=== PATIENT | female | born 1955 | race African-American/Black ===

== ENCOUNTER 2019-06-02 21:34 | Observation (INO) | payer MEDICARE, MEDICAID ==
[2019-06-02 22:47] LABS: #Basophils 0.1 thou/uL (0.0-0.2); #Eosinphils 0.1 thou/uL (0.0-0.7); #Lymphocytes 3.5 thou/uL (1.20-3.40); #Monocytes 0.4 thou/uL (0.11-0.59); #Neutrophils 9.6 thou/uL (1.40-6.50); %Basophils 0.6 % (0.0-1.0); %Eosinophils 0.4 % (0.0-10.0); %Lymphocytes 25.4 % (21.0-51.0); %Monocytes 2.6 % (0.0-10.0); Hemoglobin 12.6 g/dL (12.0-16.0); Mean Corpuscular HGB CONC 31.4 g/dL (32.0-36.0); Mean Corpuscular Hemoglobin 25.5 pg (27.0-31.0); Mean Corpuscular Volume 81.4 fL (78.0-98.0); Platelet Count 202 thou/uL (130-400); Red Blood Cell (RBC) Count 4.93 mill/uL (4.20-5.40); White Blood Cell (WBC) Count 13.6 thou/uL (4.8-10.8)
[2019-06-02 23:07] LABS: Bilirubin Negative (Negative); Blood, Urine Negative (Negative); Clarity Clear (Clear); Glucose, Urine (Dipstick) Normal (Negative); Leukocyte 500 Leu/uL (Negative); Mucous/LPF Rare LPF (<2+); Nitrite Negative (Negative); Protein, Urine (Dipstick) 50 mg/dL (Neg-Trace); Squamous Epithelial 0-3 HPF (0-3); Urobilinogen 6 mg/dL (Less than 2); WBC/HPF 21-50 HPF (0-3)
[2019-06-02 23:08] LABS: Bacteria/HPF 1+ HPF (None Seen)
[2019-06-02 23:10] LABS: Anion Gap 17 mmol/L (10-20); BUN (Urea Nitrogen) 20 mg/dL (9.8-20.1); Calc. Creatinine Clearance 0 mL/min (70-130); Calcium 8.2 mg/dL (7.8-10.44); Carbon Dioxide 36 mmol/L (23-31); Chloride 87 mmol/L (98-107); Estimated GFR-MDRD 83; Glucose 133 mg/dL (80-115); Sodium 138 mmol/L (136-145)
[2019-06-02] MEDS ORDERED: cefTRIAXone\\ROCEPHIN 1 GM VIAL ONE (23:52)
[2019-06-02] MEDS ORDERED: Potassium Chloride 20 MEQ TAB ONE (23:52)
[2019-06-02] MEDS ORDERED: Magnesium 2 GM/50 ML BAG (IN WATER) ONE (23:52)
[2019-06-03 00:03] LABS: Magnesium 1.9 mg/dL (1.6-2.6)
[2019-06-03 00:08] LABS: Troponin I 0.049 ng/mL (< 0.028)
[2019-06-03] MEDS ORDERED: Potassium Chloride 40 MEQ in Sodium Chloride 0.9% 250 ML 250 ML IVPB SCH (00:15)
[2019-06-03] MEDS ORDERED: Aspirin Chewable 81 MG TAB ONE (00:36)
[2019-06-03] MEDS: NS 0.9% w/ 40 MEQ KCL 1,000 ML IV SCH ×3 (04:57→18:50)
[2019-06-03] MEDS ORDERED: Calcium Carbonate 500 MG ChewTAB PO PRN (06:42)
[2019-06-03] MEDS ORDERED: Acetaminophen 325 MG TAB PO PRN (06:42)
[2019-06-03] MEDS ORDERED: Senokot S 8.6-50 MG TAB PO PRN (06:42)
[2019-06-03] MEDS ORDERED: Ondansetron ODT 4 MG TAB PO PRN (06:42)
[2019-06-03] MEDS ORDERED: Bisacodyl 10 MG SUPP PR PRN (06:42)
[2019-06-03] MEDS ORDERED: cloNIDine 0.1 MG TAB PO PRN (06:44)
[2019-06-03] MEDS ORDERED: Sodium Chloride 0.65% Nasal 44 ML BOT EA NARE PRN (07:13)
[2019-06-03] MEDS ORDERED: HYDROcodone/Acetaminophen 5/325 mg Tablet PO PRN (07:13)
[2019-06-03] MEDS ORDERED: hydrALAZINE 20 MG/ML VIAL SLOW IVP PRN (07:13)
[2019-06-03] MEDS ORDERED: Ondansetron PF 4 MG/2 ML Vial IVP PRN (07:13)
[2019-06-03] MEDS ORDERED: Diabetic Tussin 200 MG/10 ML UDCUP PO PRN (07:13)
[2019-06-03] MEDS ORDERED: Loperamide HCl 2 MG CAP PO PRN (07:13)
[2019-06-03] MEDS ORDERED: Artificial Tears 18 DROP/0.9 ML EA EYE PRN (07:13)
[2019-06-03] MEDS ORDERED: Cepastat Lozenges 1 LOZ PO PRN (07:13)
[2019-06-03] MEDS ORDERED: Loratadine 10 MG TAB PO PRN (07:13)
[2019-06-03 07:37] LABS: Anion Gap 12 mmol/L (10-20); BUN (Urea Nitrogen) 18 mg/dL (9.8-20.1); Calc. Creatinine Clearance 77 mL/min (70-130); Calcium 7.5 mg/dL (7.8-10.44); Carbon Dioxide 35 mmol/L (23-31); Chloride 94 mmol/L (98-107); Estimated GFR-MDRD Greater than 90; Glucose 129 mg/dL (80-115); Sodium 138 mmol/L (136-145)
--- NOTE | 2019-06-03 07:42 | HP ---
PRIMARY CARE PHYSICIAN: [facility]. The patient follows [facility]. CHIEF CONCERN: Altered mentation. HISTORY OF PRESENT ILLNESS: The patient is a 63-year-old female with mental retardation, anxiety, depression, and psychosocial disorder, was brought in by her family with altered mentation. The patient was not acting right per family. Over the last 2 days, she has not been eating and drinking well. The patient was not participating in her routine activities. She has been staying in her room most of the time over the last 2 days. There was no fever or chills reported. No recent injury, seizure, or focal neurologic deficits reported. Please note that history was obtained from the ER record. No family at the bedside. In the emergency room, she was found to have potassium of 2.0 with urinary tract infection. She received ceftriaxone, IV fluids, potassium, aspirin, and magnesium in the emergency room. PAST MEDICAL HISTORY: 1. Mental retardation with developmental delay. The patient is followed by [facility]. 2. Anxiety and depression. 3. Tobacco dependence. 4. Psychosocial disorder. PAST SURGICAL HISTORY: Breast cysts removal in 1989. ALLERGIES: NO KNOWN DRUG ALLERGIES. CURRENT HOME MEDICATIONS: To be verified with the family. SOCIAL HISTORY: As discussed above. The patient smokes cigarettes on a daily basis. No alcohol or drug use. Follows [facility]. FAMILY HISTORY: Positive for anemia. REVIEW OF SYSTEMS: Cannot be obtained reliably from the patient due to mental retardation PHYSICAL EXAMINATION: VITAL SIGNS: Temperature 98.3, respirations of 18, pulse rate of 89, blood pressure 117/80, O2 saturation 97% on room air. GENERAL: 63-year-old female, in no apparent distress. Appears comfortable. HEENT: Head is atraumatic and normocephalic. Sclerae anicteric. Dry mucous membranes. No oral lesion. NECK: Supple. No JVD. No carotid bruit. LUNGS: Clear to auscultation bilaterally. No wheezing, rales, or rhonchi. HEART: S1 and S2, present. Regular rate and rhythm. No rubs or gallops appreciated. ABDOMEN: Soft and nontender. Bowel sounds present. No rebound or guarding. EXTREMITIES: No edema or calf tenderness. NEUROLOGY: Grossly nonfocal. The patient is moving all 4 extremities on verbal commands. Power was 4 to 5/5 in all extremities. PSYCHIATRY: Alert and awake. LYMPH NODES: No palpable lymph nodes in the neck. PERIPHERAL VASCULAR: Radial pulses are palpable bilaterally. MUSCULOSKELETAL: No joint swelling or tenderness. LABORATORY FINDINGS: Potassium 2.0 with bicarbonate of 36, BUN 20, creatinine 0.84, magnesium 1.9. Troponin 0.049. WBC 13.6 with platelet count 202. Urinalysis showed 21 to 50 wbc's with 1+ bacteria. EKG, by my review, showed sinus rhythm with nonspecific ST-T wave changes. There were ST depressions in the lateral leads. IMPRESSION: 1. Toxic metabolic encephalopathy, multifactorial. 2. Urinary tract infection. 3. Hypokalemia with potassium of 2.0. 4. Dehydration with possible contraction alkalosis. 5. Elevated troponin secondary to demand ischemia/type 2 myocardial infarction from dehydration. 6. Abnormal EKG. 7. Leukocytosis, probably secondary to urinary tract infection. 8. Mental retardation. 9. Anxiety. 10. Depression, mild, stable. PLAN: 1. The patient is currently admitted as a 23-hour observation on the telemetry unit. We will replace potassium. We will start low-dose aspirin. Check TSH, folic acid, and vitamin B12. We will recheck labs in a.m. Follow up with [facility] as outpatient. Echocardiogram will be obtained due to abnormal EKG. 2. Plan was discussed with the patient. We will discuss the plan of care with the family. We will try to obtain accurate list of medications prescribed by [facility]. Job ID: [id number]
[2019-06-03 07:43] LABS: Potassium 2.5 mmol/L (3.5-5.1)
[2019-06-03 08:01] LABS: CKMB 5.2 ng/mL (0-6.6)
[2019-06-03 08:10] LABS: Folate (Folic Acid) Less than 1.60 ng/mL (7.0-31.4); Vitamin B12 266 pg/mL (211-911)
[2019-06-03] MEDS ORDERED: Potassium Phosphate 15 MMOL in Sodium Chloride 0.9% 250 ML 250 ML IVPB SCH (09:30)
[2019-06-03] MEDS: Famotidine 20 MG TAB PO SCH ×2 (09:36→20:31)
[2019-06-03] MEDS: Aspirin 81 mg Enteric Coated Tablet PO SCH (09:36)
[2019-06-03] MEDS: Folic Acid 1 MG TAB PO SCH (09:36)
[2019-06-03] MEDS: Multivit, Therapeutic 1 TAB PO SCH (09:36)
[2019-06-03] MEDS: Thiamine 100 MG TAB PO SCH (09:36)
[2019-06-03] MEDS: Cyanocobalamin (Vitamin B-12) 1,000 MCG TAB PO SCH (09:36)
--- NOTE | 2019-06-03 14:49 | PDOC.PN ---
- Subjective Encounter Start Date: 06/03/19 Encounter Start Time: 10:00 -: old records requested/rev Patient seen and examined. No new complaints. No overnight events - Objective Resuscitation Status - Order Detail: 06/03/19 06:42 Resuscitation Status Routine Resuscitation Status: FULL: Full Resuscitation MAR Reviewed: Yes Vital Signs & Weight: Vital Signs (12 hours) Temp Pulse Resp BP Pulse Ox 06/03/19 12:58 98.5 F 94 16 102/66 98 06/03/19 07:36 98.6 F 96 14 98/63 97 Weight Weight 138 lb 6.4 oz I&O: 06/02/19 06/03/19 06/04/19 06:59 06:59 06:59 Intake Total 318 Output Total 150 Balance 168 Result Diagrams: 06/02/19 22:36 06/03/19 07:07 EKG Reviewed by me: Yes Phys Exam - Physical Examination Constitutional: NAD HEENT: moist MMs, sclera anicteric Neck: no JVD, supple Respiratory: no wheezing, no rales, no rhonchi Cardiovascular: RRR, no significant murmur, no rub Gastrointestinal: soft, non-tender, no distention, positive bowel sounds Musculoskeletal: no edema, pulses present Neurological: non-focal, normal sensation Lymphatic: no nodes Psychiatric: normal affect Skin: no rash, normal turgor Dx/Plan (1) Dehydration Code(s): E86.0 - DEHYDRATION Status: Acute (2) Demand ischemia Code(s): I24.8 - OTHER FORMS OF ACUTE ISCHEMIC HEART DISEASE Status: Acute (3) Folate deficiency Code(s): E53.8 - DEFICIENCY OF OTHER SPECIFIED B GROUP VITAMINS Status: Acute (4) Hypokalemia Code(s): E87.6 - HYPOKALEMIA Status: Acute (5) Hypophosphatemia Code(s): E83.39 - OTHER DISORDERS OF PHOSPHORUS METABOLISM Status: Acute (6) UTI (urinary tract infection) Status: Acute (7) 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 Review of Systems - Review of Systems ENT: negative: Ear Pain, Ear Discharge, Nose Pain, Nose Discharge, Nose Congestion, Mouth Pain, Mouth Swelling, Throat Pain, Throat Swelling, Other Respiratory: negative: Cough, Dry, Shortness of Breath, Hemoptysis, SOB with Excertion, Pleuritic Pain, Sputum, Wheezing Cardiovascular: negative: chest pain, palpitations, orthopnea, paroxysmal nocturnal dyspnea, edema, light headedness, other Gastrointestinal: negative: Nausea, Vomiting, Abdominal Pain, Diarrhea, Constipation, Melena, Hematochezia, Other Genitourinary: negative: Dysuria, Frequency, Incontinence, Hematuria, Retention , Other Musculoskeletal: negative: Neck Pain, Shoulder Pain, Arm Pain, Back Pain, Hand Pain, Leg Pain, Foot Pain, Other - Medications/Allergies Allergies/Adverse Reactions: Allergies Allergy/AdvReac Type Severity Reaction Status Date / Time No Known Drug Allergies Allergy Verified 06/03/19 02:43 Medications: Current Medications Acetaminophen (Tylenol) 650 mg PO Q4H PRN PRN Reason: Headache/Fever/Mild Pain (1-3) Hydrocodone Bitart/Acetaminophen ([place] 5/325) 1 tab PO Q4H PRN PRN Reason: Moderate Pain (4-6) Artificial Tears (Tears Naturale) 2 drop EA EYE PRN PRN PRN Reason: Dry Eyes Aspirin (Ecotrin) 81 mg PO DAILY [facility] Last Admin: 06/03/19 09:36 Dose: 81 mg Bisacodyl (Dulcolax) 10 mg [place] DAILYPRN PRN PRN Reason: Constipation Calcium Carbonate (Tums) 1,000 mg PO Q4H PRN PRN Reason: Heartburn or Indigestion Clonidine (Catapres) 0.1 mg PO Q4H PRN PRN Reason: SBP Greater Than 180 Cyanocobalamin (Vitamin B-12) 1,000 mcg PO DAILY [facility] Last Admin: 06/03/19 09:36 Dose: 1,000 mcg Enoxaparin Sodium (Lovenox) 40 mg SC 2100 [facility] Famotidine (Pepcid) 20 mg PO BID [facility] Last Admin: 06/03/19 09:36 Dose: 20 mg Folic Acid (Folvite) 1 mg PO DAILY [facility] Last Admin: 06/03/19 09:36 Dose: 1 mg Guaifenesin (Robitussin Sf) 200 mg PO Q4H PRN PRN Reason: Cough Hydralazine HCl (Apresoline) 10 mg SLOW IVP Q4H PRN PRN Reason: SBP > 180 and HR < 70 Potassium Chloride/Sodium Chloride (Ns 0.9% W/ 40 Meq Kcl) 1,000 mls @ 125 mls/ hr IV .Q8H [facility] Last Admin: 06/03/19 12:19 Dose: Not Given Potassium Phosphate 15 mmol/ (Sodium Chloride) 255 mls @ 62.5 mls/hr IVPB ONE [facility] Stop: 06/03/19 15:00 Loperamide HCl (Imodium) 2 mg PO PRN PRN PRN Reason: Diarrhea/Loose Stools Loratadine (Claritin) 10 mg PO DAILYPRN PRN PRN Reason: Sinus Symptoms Multivitamins (Theragran) 1 tab PO DAILY [facility] Last Admin: 06/03/19 09:36 Dose: 1 tab Ondansetron HCl (Zofran Odt) 4 mg PO Q6H PRN PRN Reason: Nausea/Vomiting Ondansetron HCl (Zofran) 4 mg IVP Q6H PRN PRN Reason: Nausea/Vomiting Senna/Docusate Sodium (Senokot S) 2 tab PO BID PRN PRN Reason: Constipation Sodium Chloride (Flush - Normal Saline) 10 ml IVF Q12HR [facility] Last Admin: 06/03/19 09:37 Dose: Not Given Sodium Chloride (Flush - Normal Saline) 10 ml IVF PRN PRN PRN Reason: Saline Flush Sodium Chloride ([place] Nasal [place] 0.65%) 0 ml EA NARE QIDPRN PRN PRN Reason: Nasal Congestion Thiamine HCl (Thiamine) 100 mg PO DAILY [facility] Last Admin: 06/03/19 09:36 Dose: 100 mg Throat Lozenges (Cepastat Lozenges) 1 michelle PO Q2H PRN PRN Reason: Sore Throat
[2019-06-03] MEDS ORDERED: Ciprofloxacin 500 MG TAB PO SCH (15:30)
[2019-06-03] MEDS: Ciprofloxacin 500 MG TAB PO SCH (20:30)
[2019-06-03] MEDS ORDERED: Enoxaparin Sodium 40 MG/0.4 ML SYRINGE SC SCH (21:00)
[2019-06-04] MEDS: NS 0.9% w/ 40 MEQ KCL 1,000 ML IV SCH (02:53)
[2019-06-04 05:50] LABS: Anion Gap 10 mmol/L (10-20); BUN (Urea Nitrogen) 10 mg/dL (9.8-20.1); Calc. Creatinine Clearance 98 mL/min (70-130); Calcium 7.3 mg/dL (7.8-10.44); Carbon Dioxide 32 mmol/L (23-31); Chloride 100 mmol/L (98-107); Estimated GFR-MDRD Greater than 90; Glucose 113 mg/dL (80-115); Sodium 139 mmol/L (136-145)
[2019-06-04 05:51] LABS: ALT (SGPT) 14 U/L (8-55); AST (SGOT) 15 U/L (5-34); Albumin 2.8 g/dL (3.4-4.8); Alkaline Phosphatase 50 U/L (40-150); Bilirubin, Direct 0.4 mg/dL (0.1-0.3); Bilirubin, Total 0.7 mg/dL (0.2-1.2); Cholesterol 67 mg/dl (< 200 Desired); HDL Cholesterol 34 mg/dL (>60 Neg Risk); LDL Cholesterol, Calculated 24 mg/dL; Protein, Total 5.2 g/dL (6.0-8.3); Triglycerides 47 mg/dL (Less than 150)
[2019-06-04 05:52] LABS: Potassium 2.5 mmol/L (3.5-5.1)
[2019-06-04] MEDS: Ciprofloxacin 500 MG TAB PO SCH (06:22)
[2019-06-04] MEDS ORDERED: Potassium Chloride 40 MEQ in Sodium Chloride 0.9% 250 ML 250 ML IVPB SCH (06:30)
[2019-06-04] MEDS ORDERED: Potassium Phosphate 30 MMOL in Sodium Chloride 0.9% 500 ML IVPB SCH (07:15)
[2019-06-04] MEDS ORDERED: Potassium Chloride 20 MEQ TAB PO SCH ×2 (07:15→12:00)
[2019-06-04] MEDS: Aspirin 81 mg Enteric Coated Tablet PO SCH (07:41)
[2019-06-04] MEDS: Multivit, Therapeutic 1 TAB PO SCH (07:42)
[2019-06-04] MEDS: Famotidine 20 MG TAB PO SCH (07:42)
[2019-06-04] MEDS: Thiamine 100 MG TAB PO SCH (07:42)
[2019-06-04] MEDS: Cyanocobalamin (Vitamin B-12) 1,000 MCG TAB PO SCH (07:42)
[2019-06-04] MEDS: Folic Acid 1 MG TAB PO SCH (07:42)
--- NOTE | 2019-06-04 10:23 | DIS ---
DATE OF ADMISSION: 06/03/2019 DATE OF DISCHARGE: 06/04/2019 PRIMARY CARE PHYSICIAN: [facility] Call admission. DISCHARGE DISPOSITION: Home. PRIMARY DISCHARGE DIAGNOSES: 1. Hypokalemia. 2. Folate deficiency. 3. Dehydration. 4. Demand ischemia. 5. Hypophosphatemia. 6. Urinary tract infection. SECONDARY DISCHARGE DIAGNOSES: 1. Mild psychomotor retardation. 2. Tobacco abuse disorder. 3. Obesity with BMI 31. PRIMARY PROCEDURE/OPERATION: None. RADIOLOGICAL INVESTIGATION: Echocardiography showed EF 55% to 60%, diastolic dysfunction. SIGNIFICANT LABORATORY DATA: Hemoglobin 12.6, creatinine 0.59, albumin 2.8. Troponin negative. Folate 1.6, B12 of 266, TSH 0.57. DISCHARGE MEDICATIONS: 1. Ciprofloxacin 500 mg p.o. twice daily for 5 days. 2. Vitamin B12 1000 mcg p.o. daily. 3. Folic acid 1 mg p.o. daily. 4. Multivitamin one tablet p.o. daily. 5. Thiamine 100 mg p.o. daily. 6. Potassium chloride 20 mEq p.o. daily. CONTRAINDICATION: None. CODE STATUS: Full code. INPATIENT [employer]ATION OPERATOR: None. ALLERGIES: NO KNOWN DRUG ALLERGIES. DISCHARGE PLAN: Posthospital, the patient will follow up with primary care physician in one week. HOSPITAL COURSE: A 63-year-old female with above-mentioned medical problem, who was admitted by Dr. Osman. Please see his H and P for further details. The patient was dehydrated. She was feeling generalized weak. She has psychomotor retardation and not able to provide any good history, but she had poor p.o. intake. She was found with hypokalemia and folate deficiency. Her phosphorus level was also low. During this admission, we replaced potassium phosphate, potassium chloride as well as she was given IV fluid. Her urinalysis was suggestive of UTI and that was treated with oral Cipro while in hospital. This patient is doing overall well. She is stable hemodynamically. Plan of care discussed with the family member. Today, again, potassium is relatively low and that is why we are replacing potassium aggressively including potassium phosphate and potassium chloride IV. The patient will get potassium supplement at home as well with prescription and folic acid will be given. I have seen and examined the patient bedside today. Her examination is completely normal. Her vitals are stable. All new medication prescription sent to her pharmacy. This patient will be discharged home later on today because we are going to recheck her potassium in afternoon time and subsequently, she will be able to go home. Job ID: [id number]
--- NOTE | 2019-06-04 10:31 | PDOC.PN ---
- Subjective Encounter Start Date: 06/04/19 Encounter Start Time: 07:30 -: old records requested/rev Patient seen and examined. No new complaints. No overnight events - Objective Resuscitation Status - Order Detail: 06/03/19 06:42 Resuscitation Status Routine Resuscitation Status: FULL: Full Resuscitation MAR Reviewed: Yes Vital Signs & Weight: Vital Signs (12 hours) Temp Pulse Resp BP Pulse Ox 06/04/19 07:23 98.4 F 85 16 102/74 97 06/04/19 02:56 98.7 F 74 21 H 112/74 96 06/03/19 23:41 98.0 F 91 16 113/84 95 Weight Weight 146 lb I&O: 06/03/19 06/04/19 06/05/19 06:59 06:59 06:59 Intake Total 318 3280 Output Total 150 1500 Balance 168 1780 Result Diagrams: 06/02/19 22:36 06/04/19 05:16 Phys Exam - Physical Examination Constitutional: NAD HEENT: moist MMs, sclera anicteric Neck: no JVD, supple Respiratory: no wheezing, no rales, no rhonchi Cardiovascular: RRR, no significant murmur, no rub Gastrointestinal: soft, non-tender, no distention, positive bowel sounds Musculoskeletal: no edema, pulses present Neurological: non-focal, normal sensation Lymphatic: no nodes Psychiatric: normal affect, A&O x 3 Skin: no rash, normal turgor Dx/Plan (1) Dehydration Code(s): E86.0 - DEHYDRATION Status: Acute (2) Demand ischemia Code(s): I24.8 - OTHER FORMS OF ACUTE ISCHEMIC HEART DISEASE Status: Acute (3) Folate deficiency Code(s): E53.8 - DEFICIENCY OF OTHER SPECIFIED B GROUP VITAMINS Status: Acute (4) Hypokalemia Code(s): E87.6 - HYPOKALEMIA Status: Acute (5) Hypophosphatemia Code(s): E83.39 - OTHER DISORDERS OF PHOSPHORUS METABOLISM Status: Acute (6) UTI (urinary tract infection) Status: Acute (7) 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 Review of Systems - Review of Systems Respiratory: negative: Cough, Dry, Shortness of Breath, Hemoptysis, SOB with Excertion, Pleuritic Pain, Sputum, Wheezing Cardiovascular: negative: chest pain, palpitations, orthopnea, paroxysmal nocturnal dyspnea, edema, light headedness, other Gastrointestinal: negative: Nausea, Vomiting, Abdominal Pain, Diarrhea, Constipation, Melena, Hematochezia, Other Genitourinary: negative: Dysuria, Frequency, Incontinence, Hematuria, Retention , Other Musculoskeletal: negative: Neck Pain, Shoulder Pain, Arm Pain, Back Pain, Hand Pain, Leg Pain, Foot Pain, Other - Medications/Allergies Allergies/Adverse Reactions: Allergies Allergy/AdvReac Type Severity Reaction Status Date / Time No Known Drug Allergies Allergy Verified 06/03/19 02:43 Medications: Current Medications Acetaminophen (Tylenol) 650 mg PO Q4H PRN PRN Reason: Headache/Fever/Mild Pain (1-3) Hydrocodone Bitart/Acetaminophen ([place] 5/325) 1 tab PO Q4H PRN PRN Reason: Moderate Pain (4-6) Artificial Tears (Tears Naturale) 2 drop EA EYE PRN PRN PRN Reason: Dry Eyes Aspirin (Ecotrin) 81 mg PO DAILY [facility] Last Admin: 06/04/19 07:41 Dose: 81 mg Bisacodyl (Dulcolax) 10 mg [place] DAILYPRN PRN PRN Reason: Constipation Calcium Carbonate (Tums) 1,000 mg PO Q4H PRN PRN Reason: Heartburn or Indigestion Ciprofloxacin (Cipro) 500 mg PO 0600,2000 [facility] Last Admin: 06/04/19 06:22 Dose: 500 mg Clonidine (Catapres) 0.1 mg PO Q4H PRN PRN Reason: SBP Greater Than 180 Cyanocobalamin (Vitamin B-12) 1,000 mcg PO DAILY [facility] Last Admin: 06/04/19 07:42 Dose: 1,000 mcg Enoxaparin Sodium (Lovenox) 40 mg SC 2100 [facility] Last Admin: 06/03/19 20:30 Dose: 40 mg Famotidine (Pepcid) 20 mg PO BID [facility] Last Admin: 06/04/19 07:42 Dose: 20 mg Folic Acid (Folvite) 1 mg PO DAILY [facility] Last Admin: 06/04/19 07:42 Dose: 1 mg Guaifenesin (Robitussin Sf) 200 mg PO Q4H PRN PRN Reason: Cough Hydralazine HCl (Apresoline) 10 mg SLOW IVP Q4H PRN PRN Reason: SBP > 180 and HR < 70 Potassium Phosphate 30 mmol/ (Sodium Chloride) 510 mls @ 63.75 mls/hr IVPB NOW [facility] Stop: 06/04/19 15:14 Last Admin: 06/04/19 08:10 Dose: 510 mls Loperamide HCl (Imodium) 2 mg PO PRN PRN PRN Reason: Diarrhea/Loose Stools Loratadine (Claritin) 10 mg PO DAILYPRN PRN PRN Reason: Sinus Symptoms Multivitamins (Theragran) 1 tab PO DAILY [facility] Last Admin: 06/04/19 07:42 Dose: 1 tab Ondansetron HCl (Zofran Odt) 4 mg PO Q6H PRN PRN Reason: Nausea/Vomiting Ondansetron HCl (Zofran) 4 mg IVP Q6H PRN PRN Reason: Nausea/Vomiting Potassium Chloride (K-Dur) 40 meq PO 1200 [facility] Stop: 06/04/19 14:00 Senna/Docusate Sodium (Senokot S) 2 tab PO BID PRN PRN Reason: Constipation Sodium Chloride (Flush - Normal Saline) 10 ml IVF Q12HR [facility] Last Admin: 06/04/19 07:48 Dose: Not Given Sodium Chloride (Flush - Normal Saline) 10 ml IVF PRN PRN PRN Reason: Saline Flush Sodium Chloride ([place] Nasal [place] 0.65%) 0 ml EA NARE QIDPRN PRN PRN Reason: Nasal Congestion Thiamine HCl (Thiamine) 100 mg PO DAILY [facility] Last Admin: 06/04/19 07:42 Dose: 100 mg Throat Lozenges (Cepastat Lozenges) 1 michelle PO Q2H PRN PRN Reason: Sore Throat
[2019-06-04 11:38] VITALS: BP 116/76; TEMP 98.1
[2019-06-04 14:48] VITALS: BMI 31.6
[2019-06-04 14:58] LABS: Potassium 3.5 mmol/L (3.5-5.1)
--- NOTE | 2019-06-09 15:20 | EKG ---
Test Reason : Blood Pressure : / mmHG Vent. Rate : 085 BPM Atrial Rate : 085 BPM P-R Int : 146 ms QRS Dur : 072 ms QT Int : 448 ms P-R-T Axes : 026 034 232 degrees QTc Int : 533 ms Normal sinus rhythm Prolonged QT Abnormal ECG Confirmed by LAY PAYTON DO ([id number]), video tape editor GERMAINE AGUILA ([id number]) on 06/09/2019 3:20:18 PM Referred By: Confirmed By:LAY PAYTON DO
== END 2019-06-04 16:00 | disposition home or self-care (01) ==
LOC: ERS 21:34 → 2SW 06-03 01:18
PROVIDERS: ADMIT Internal Medicine; ATTEND Internal Medicine
DX: G92 Toxic encephalopathy (principal); E87.6 Hypokalemia; R62.50 Unspecified lack of expected normal physiological development in childhood; F41.8 Other specified anxiety disorders; F32.9 Major depressive disorder, single episode, unspecified; F79 Unspecified intellectual disabilities; N39.0 Urinary tract infection, site not specified; D64.9 Anemia, unspecified; D72.829 Elevated white blood cell count, unspecified; F17.210 Nicotine dependence, cigarettes, uncomplicated; Z79.82 Long term (current) use of aspirin; Z79.899 Other long term (current) drug therapy
CPT/HCPCS: 80048 ×3; 80061; 80076; 82550; 82553; 82607; 82746; 83735; 84100 ×2; 84132; 84443; 84484 ×3; 85025; 87086; 93005; 93306; 96365; 96366 ×2; 96367; 96368; 96372; 96375; 97139 ×2; 99285; G0378 ×2; 36415; 81003; 81015; J0696; J1650; J3475; J3480; J7050

== ENCOUNTER 2021-12-14 13:09 | Inpatient (IN) | payer MEDICARE, MEDICAID ==
[2021-12-14] MEDS ORDERED: OLANZapine 5 MG TAB ONE (14:33)
[2021-12-14] MEDS ORDERED: Metoclopramide HCl 10 MG TAB ONE (14:41)
[2021-12-14 14:52] LABS: #Basophils 0.1 thou/uL (0.0-0.2); #Eosinphils 0.2 thou/uL (0.0-0.7); #Lymphocytes 2.8 thou/uL (1.20-3.40); #Monocytes 0.5 thou/uL (0.11-0.59); #Neutrophils 3.8 thou/uL (1.40-6.50); %Basophils 1.1 % (0.0-1.0); %Lymphocytes 37.8 % (21.0-51.0); %Monocytes 7.1 % (0.0-10.0); Hemoglobin 12.4 g/dL (12.0-16.0); Mean Corpuscular HGB CONC 32.2 g/dL (32.0-36.0); Mean Corpuscular Hemoglobin 26.6 pg (27.0-31.0); Mean Corpuscular Volume 82.5 fL (78.0-98.0); Platelet Count 240 thou/uL (130-400); RBC Distribution Width 13.5 % (11.5-14.5); Red Blood Cell (RBC) Count 4.65 mill/uL (4.20-5.40); White Blood Cell (WBC) Count 7.3 thou/uL (4.8-10.8)
[2021-12-14 15:10] LABS: ALT (SGPT) 7 U/L (8-55); AST (SGOT) 13 U/L (5-34); Albumin 4.1 g/dL (3.4-4.8); Alkaline Phosphatase 104 U/L (40-110); Anion Gap 15 mmol/L (10-20); BUN (Urea Nitrogen) 21 mg/dL (9.8-20.1); Bilirubin, Total 0.7 mg/dL (0.2-1.2); CK (CPK) 113 U/L (29-168); Calc. Creatinine Clearance 0 mL/min (70-130); Calcium 9.3 mg/dL (7.8-10.44); Carbon Dioxide 25 mmol/L (23-31); Chloride 100 mmol/L (98-107); Globulin 4.2 g/dL (2.4-3.5); Glucose 98 mg/dL (80-115); Potassium 3.3 mmol/L (3.5-5.1); Protein, Total 8.3 g/dL (5.8-8.1); Sodium 137 mmol/L (136-145)
[2021-12-14 15:18] LABS: Acetaminophen Less than 6.0 mcg/mL (10.0-30.0); Alcohol Less than 10 mg/dL (Less than 10); Salicylate Less than 8.0 mg/dL (15.0-30.0)
[2021-12-14 16:04] LABS: Bacteria/HPF 2+ HPF (None Seen); Bilirubin Negative (Negative); Blood, Urine Trace (Negative); Clarity Clear (Clear); Glucose, Urine (Dipstick) Normal (Negative); Ketone, Urine Negative (Negative); Leukocyte 75 Leu/uL (Negative); Nitrite Negative (Negative); Protein, Urine (Dipstick) 20 mg/dL (Neg-Trace); RBC/HPF 0-3 HPF (0-3); Specific Gravity, Urine 1.027 (1.002-1.036); Urobilinogen Normal mg/dL (Less than 2); WBC/HPF 0-3 HPF (0-3)
[2021-12-14 16:12] LABS: Amphetamine Not Detected (NotDetected); Barbiturates Screen Not Detected (NotDetected); Benzodiazepine Screen Not Detected (NotDetected); Cocaine Metabolite Screen Not Detected (NotDetected); Methadone Not Detected (NotDetected); Methamphetamine Not Detected (NotDetected); Opiate Screen Not Detected (NotDetected); Oxycodone Screen Not Detected (NotDetected); Phencyclidine (PCP) Not Detected (NotDetected); THC/Cannabinoid Screen Not Detected (NotDetected); Tricyclic Screen Not Detected (NotDetected)
[2021-12-14] MEDS ORDERED: Ondansetron ODT 4 MG TAB SL PRN (20:45)
[2021-12-14] MEDS ORDERED: Ondansetron PF 4 MG/2 ML Vial IVP PRN (20:45)
[2021-12-14] MEDS ORDERED: Guaifenesin DM 100-10/5 ML UDCUP PO PRN (21:27)
[2021-12-14] MEDS ORDERED: Acetaminophen 325 MG TAB PO PRN (21:27)
[2021-12-14] MEDS ORDERED: Haloperidol Lactate 5 MG/ML VIAL SLOW IVP PRN ×2 (23:27→23:28)
[2021-12-15 01:48] VITALS: BMI 25.4
[2021-12-15] MEDS: Nicotine 21 MG PATCH TD SCH ×2 (04:38→21:14)
[2021-12-15 06:47] LABS: Hemoglobin 10.3 g/dL (12.0-16.0); Mean Corpuscular HGB CONC 31.8 g/dL (32.0-36.0); Mean Corpuscular Hemoglobin 26.4 pg (27.0-31.0); Mean Corpuscular Volume 83.1 fL (78.0-98.0); Mean Platelet Volume 7.8 fL (7.4-10.4); Platelet Count 204 thou/uL (130-400); RBC Distribution Width 13.5 % (11.5-14.5); White Blood Cell (WBC) Count 5.8 thou/uL (4.8-10.8)
[2021-12-15 07:06] LABS: ALT (SGPT) Less than 7 U/L (8-55); AST (SGOT) 12 U/L (5-34); Albumin 3.2 g/dL (3.4-4.8); Alkaline Phosphatase 86 U/L (40-110); Anion Gap 11 mmol/L (10-20); BUN (Urea Nitrogen) 15 mg/dL (9.8-20.1); Calc. Creatinine Clearance 86 mL/min (70-130); Calcium 8.4 mg/dL (7.8-10.44); Carbon Dioxide 25 mmol/L (23-31); Chloride 104 mmol/L (98-107); Globulin 3.4 g/dL (2.4-3.5); Glucose 99 mg/dL (80-115); Potassium 3.6 mmol/L (3.5-5.1); Protein, Total 6.6 g/dL (5.8-8.1); Sodium 136 mmol/L (136-145)
[2021-12-15 08:58] LABS: Eosinophils 7 % (0-10); Lymphocytes 46 % (21-51); MDiff Complete? YES; Monocytes 2 % (0-10); Neutrophil 45 % (42-75); Platelet Morphology Comment Appears Adequate; RBC Morphology Normal
[2021-12-15] MEDS ORDERED: OLANZapine 5 MG TAB PO SCH (09:00)
[2021-12-15 13:08] LABS: SARS-CoV-2 PCR by NAA Not Detected (NotDetected)
[2021-12-15] MEDS: risperiDONE 1 MG TAB PO SCH (21:14)
[2021-12-16 06:49] LABS: #Eosinphils 0.2 thou/uL (0.0-0.7); #Lymphocytes 1.9 thou/uL (1.20-3.40); #Monocytes 0.3 thou/uL (0.11-0.59); #Neutrophils 2.8 thou/uL (1.40-6.50); %Basophils 0.9 % (0.0-1.0); %Eosinophils 2.9 % (0.0-10.0); %Lymphocytes 36.1 % (21.0-51.0); %Monocytes 6.3 % (0.0-10.0); %Neutrophils 53.9 % (42.0-75.0); Hemoglobin 10.2 g/dL (12.0-16.0); Mean Corpuscular HGB CONC 31.4 g/dL (32.0-36.0); Mean Corpuscular Hemoglobin 26.6 pg (27.0-31.0); Mean Corpuscular Volume 84.6 fL (78.0-98.0); Mean Platelet Volume 8.1 fL (7.4-10.4); Platelet Count 199 thou/uL (130-400); RBC Distribution Width 13.4 % (11.5-14.5); Red Blood Cell (RBC) Count 3.84 mill/uL (4.20-5.40); White Blood Cell (WBC) Count 5.2 thou/uL (4.8-10.8)
[2021-12-16 07:08] LABS: ALT (SGPT) Less than 7 U/L (8-55); AST (SGOT) 11 U/L (5-34); Albumin 3.3 g/dL (3.4-4.8); Alkaline Phosphatase 86 U/L (40-110); Anion Gap 12 mmol/L (10-20); BUN (Urea Nitrogen) 11 mg/dL (9.8-20.1); Bilirubin, Total 0.7 mg/dL (0.2-1.2); Calc. Creatinine Clearance 78 mL/min (70-130); Calcium 8.6 mg/dL (7.8-10.44); Carbon Dioxide 24 mmol/L (23-31); Chloride 103 mmol/L (98-107); Globulin 3.5 g/dL (2.4-3.5); Glucose 133 mg/dL (80-115); Potassium 3.3 mmol/L (3.5-5.1); Protein, Total 6.8 g/dL (5.8-8.1); Sodium 136 mmol/L (136-145)
[2021-12-16] MEDS ORDERED: Potassium Chloride 20 MEQ TAB PO SCH (07:30)
[2021-12-16 07:56] LABS: Magnesium 1.7 mg/dL (1.6-2.6)
[2021-12-16] MEDS ORDERED: Magnesium 2 GM/50 ML 2 GM in Premix Bag 1 BAG IVPB SCH (10:15)
[2021-12-16] MEDS: risperiDONE 1 MG TAB PO SCH (21:16)
[2021-12-16] MEDS: Nicotine 21 MG PATCH TD SCH (21:16)
[2021-12-17 07:14] LABS: #Eosinphils 0.2 thou/uL (0.0-0.7); #Lymphocytes 2.2 thou/uL (1.20-3.40); #Monocytes 0.3 thou/uL (0.11-0.59); #Neutrophils 2.7 thou/uL (1.40-6.50); %Basophils 0.7 % (0.0-1.0); %Eosinophils 3.4 % (0.0-10.0); %Lymphocytes 40.1 % (21.0-51.0); %Monocytes 5.9 % (0.0-10.0); %Neutrophils 49.8 % (42.0-75.0); Hemoglobin 10.6 g/dL (12.0-16.0); Mean Corpuscular HGB CONC 32.8 g/dL (32.0-36.0); Mean Corpuscular Hemoglobin 27.5 pg (27.0-31.0); Mean Corpuscular Volume 83.7 fL (78.0-98.0); Mean Platelet Volume 8.4 fL (7.4-10.4); Platelet Count 194 thou/uL (130-400); RBC Distribution Width 13.5 % (11.5-14.5); Red Blood Cell (RBC) Count 3.86 mill/uL (4.20-5.40); White Blood Cell (WBC) Count 5.4 thou/uL (4.8-10.8)
[2021-12-17 07:34] LABS: ALT (SGPT) Less than 7 U/L (8-55); AST (SGOT) 10 U/L (5-34); Albumin 3.2 g/dL (3.4-4.8); Alkaline Phosphatase 86 U/L (40-110); Anion Gap 12 mmol/L (10-20); BUN (Urea Nitrogen) 10 mg/dL (9.8-20.1); Bilirubin, Total 0.7 mg/dL (0.2-1.2); Calc. Creatinine Clearance 79 mL/min (70-130); Calcium 8.7 mg/dL (7.8-10.44); Carbon Dioxide 26 mmol/L (23-31); Chloride 102 mmol/L (98-107); Globulin 3.7 g/dL (2.4-3.5); Glucose 108 mg/dL (80-115); Potassium 3.8 mmol/L (3.5-5.1); Protein, Total 6.9 g/dL (5.8-8.1); Sodium 136 mmol/L (136-145)
[2021-12-17] MEDS: Polyethylene Glycol 3350 17 GM Packet PO SCH (09:34)
[2021-12-17] MEDS: risperiDONE 1 MG TAB PO SCH (22:53)
[2021-12-17] MEDS: Nicotine 21 MG PATCH TD SCH (22:55)
[2021-12-18] MEDS: Ondansetron ODT 4 MG TAB PO PRN (04:46)
[2021-12-18] MEDS ORDERED: Promethazine HCl 12.5 MG in Sodium Chloride 0.9% 50 ML IVPB PRN (13:36)
[2021-12-18] MEDS: Polyethylene Glycol 3350 17 GM Packet PO SCH (15:41)
[2021-12-18] MEDS: risperiDONE 1 MG TAB PO SCH (21:43)
[2021-12-18] MEDS: Nicotine 21 MG PATCH TD SCH (21:43)
[2021-12-19] MEDS: Polyethylene Glycol 3350 17 GM Packet PO SCH (08:48)
[2021-12-19] MEDS: risperiDONE 1 MG TAB PO SCH (22:16)
[2021-12-19] MEDS: Nicotine 21 MG PATCH TD SCH (22:16)
[2021-12-20] MEDS: Ondansetron ODT 4 MG TAB PO PRN (09:41)
[2021-12-20] MEDS: Polyethylene Glycol 3350 17 GM Packet PO SCH (11:06)
[2021-12-20] MEDS: Nicotine 21 MG PATCH TD SCH (21:07)
[2021-12-20] MEDS: risperiDONE 1 MG TAB PO SCH (21:11)
[2021-12-21] MEDS: Ondansetron ODT 4 MG TAB PO PRN (08:26)
[2021-12-21] MEDS: Polyethylene Glycol 3350 17 GM Packet PO SCH (08:26)
[2021-12-21] MEDS: Famotidine 20 MG TAB PO SCH ×2 (08:26→19:52)
[2021-12-21 08:49] LABS: #Eosinphils 0.1 thou/uL (0.0-0.7); #Lymphocytes 2.4 thou/uL (1.20-3.40); #Monocytes 0.5 thou/uL (0.11-0.59); #Neutrophils 3.2 thou/uL (1.40-6.50); %Basophils 0.3 % (0.0-1.0); %Eosinophils 2.4 % (0.0-10.0); %Lymphocytes 38.2 % (21.0-51.0); %Monocytes 7.4 % (0.0-10.0); %Neutrophils 51.7 % (42.0-75.0); Hemoglobin 11.8 g/dL (12.0-16.0); Mean Corpuscular HGB CONC 32.1 g/dL (32.0-36.0); Mean Corpuscular Hemoglobin 26.7 pg (27.0-31.0); Mean Corpuscular Volume 83.2 fL (78.0-98.0); Mean Platelet Volume 7.6 fL (7.4-10.4); Platelet Count 238 thou/uL (130-400); RBC Distribution Width 13.2 % (11.5-14.5); Red Blood Cell (RBC) Count 4.43 mill/uL (4.20-5.40); White Blood Cell (WBC) Count 6.1 thou/uL (4.8-10.8)
[2021-12-21 09:08] LABS: ALT (SGPT) 9 U/L (8-55); AST (SGOT) 14 U/L (5-34); Albumin 3.5 g/dL (3.4-4.8); Alkaline Phosphatase 101 U/L (40-110); Anion Gap 12 mmol/L (10-20); BUN (Urea Nitrogen) 16 mg/dL (9.8-20.1); Bilirubin, Total 0.9 mg/dL (0.2-1.2); Calc. Creatinine Clearance 72 mL/min (70-130); Calcium 9.2 mg/dL (7.8-10.44); Carbon Dioxide 25 mmol/L (23-31); Chloride 99 mmol/L (98-107); Globulin 4.2 g/dL (2.4-3.5); Glucose 100 mg/dL (80-115); Potassium 4.1 mmol/L (3.5-5.1); Protein, Total 7.7 g/dL (5.8-8.1); Sodium 132 mmol/L (136-145)
[2021-12-21] MEDS: Nicotine 21 MG PATCH TD SCH (19:34)
[2021-12-21] MEDS: risperiDONE 1 MG TAB PO SCH (19:52)
[2021-12-22] MEDS: Polyethylene Glycol 3350 17 GM Packet PO SCH (08:45)
[2021-12-22] MEDS: Famotidine 20 MG TAB PO SCH ×2 (08:45→20:20)
[2021-12-22] MEDS: Ondansetron ODT 4 MG TAB PO PRN (08:47)
[2021-12-22 11:25] LABS: SARS-CoV-2 PCR by NAA Not Detected (NotDetected)
[2021-12-22] MEDS: Nicotine 21 MG PATCH TD SCH (20:20)
[2021-12-22] MEDS: risperiDONE 1 MG TAB PO SCH (20:20)
[2021-12-23] MEDS: Famotidine 20 MG TAB PO SCH ×2 (09:36→19:53)
[2021-12-23] MEDS: Polyethylene Glycol 3350 17 GM Packet PO SCH (09:38)
[2021-12-23] MEDS: Nicotine 21 MG PATCH TD SCH (19:11)
[2021-12-23] MEDS: risperiDONE 1 MG TAB PO SCH (19:53)
[2021-12-24] MEDS: Famotidine 20 MG TAB PO SCH (08:51)
[2021-12-24] MEDS: Polyethylene Glycol 3350 17 GM Packet PO SCH (08:52)
[2021-12-24 11:21] VITALS: BP 113/78; TEMP 97.8
== END 2021-12-24 11:36 | DRG 885 ==
LOC: EEVIPCON 13:09 → ERS 13:09 → T4-A 21:27 → OBSVTOIN 12-16 12:04
PROVIDERS: ADMIT Student in an Organized Health Care Education/Training Program; ATTEND Student in an Organized Health Care Education/Training Program
DX: F20.3 Undifferentiated schizophrenia (principal); G93.49 Other encephalopathy; R45.850 Homicidal ideations; Z20.822 Contact with and (suspected) exposure to COVID-19; F17.210 Nicotine dependence, cigarettes, uncomplicated; E87.6 Hypokalemia; R45.1 Restlessness and agitation; G47.33 Obstructive sleep apnea (adult) (pediatric); F29 Unspecified psychosis not due to a substance or known physiological condition; E83.42 Hypomagnesemia; R05.9 Cough, unspecified; R11.2 Nausea with vomiting, unspecified
CPT/HCPCS: 36415; 70450; 71045; 80053; 80306; 80307; 81003; 81015; 82140; 82550; 83735; 84443; 85025; 87086; 93005; G0378; J3475; Q0162; U0003; U0005